=== PATIENT | male | born 1945 | race Caucasian/White ===

== ENCOUNTER → 2016-08-08 | Outpatient (CLI) | payer MEDICARE ==
[~2016-08-08] MED LIST: APIX5TAB PO; ASPI-586 PO; DABI150C5 PO; DABI75CA3 PO; DILT240C90 PO; FLUT9.9S NS; FURO-125 PO; GUAI600T43 PO; METO-333 PO; POTA10TA PO; PSEU30TA18 PO; VIT1CAPS5 PO
--- OUTSIDE RECORDS SUMMARY | 2016-08-08 10:45 | XMS REPORT | Continuity of Care Document ---
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 Medications Current Home Medications Medication Dose Units Route Directions Days/Qty Instructions Start Date Aspirin 81 Mg 81 Mg Oral Daily 05/01/16 Vit A/C/E/Zinc/Co 1 Cap 1 Cap Oral Daily 05/01/16 Social History Social History Problem Response Recorded Date/Time Alcohol Use Rarely Uses 05/01/2016 12:43pm Recreational Drug Use No 05/01/2016 12:43pm Recent Foreign Travel No 05/01/2016 12:43pm Recent Infectious Disease Exposure No 05/01/2016 12:43pm Smoking Status Never a Smoker 05/01/2016 12:43pm Recent Hopitalizations No 05/01/2016 12:43pm Query Response Start Date Stop Date Smoking Status Never a Smoker Hospital Discharge Instructions No hospital discharge instructions. Plan of Care Discharge Date 05/01/16 3:27pm Prescriptions See Medication Section Functional Status No functional status results. Allergies, Adverse Reactions, Alerts No known allergies. Immunizations No immunization records. Vital Signs Acute Vital Signs Vital Response Date/Time Height (Feet) 5 feet 05/01/2016 12:46pm Height (Inches) 11.00 inches 05/01/2016 12:46pm Height (Calculated Centimeters) 180.580692 cm 05/01/2016 12:46pm Weight (Pounds) 280 pounds 05/01/2016 12:46pm Weight (Ounces) 0.0 oz 05/01/2016 12:46pm Weight (Calculated Grams) 711991.87 gm 05/01/2016 12:46pm Weight (Calculated Kilograms) 127.290139 kilograms 05/01/2016 12:46pm Calculated BMI 39.1 05/01/2016 12:46pm Results No known relevant diagnostic tests, laboratory data and/or discharge summary. Procedures No known history of procedures. Encounters Encounter Location Arrival/Admit Date Discharge/Depart Date Attending Provider Departed Clinic [facility] 05/01/16 6:06am 05/01/16 3: 27pm KYLE JOSE MD
== END ==
LOC: CARD 10:41
PROVIDERS: ATTEND Internal Medicine
DX: R00.2 Palpitations (principal); R00.0 Tachycardia, unspecified
CPT/HCPCS: 93005; 93225; 93226

== ENCOUNTER 2016-08-14 14:55 | Day surgery (SDC) | payer MEDICARE ==
[~2016-08-14] VITALS: Ht 180.3 cm; Wt 137.1 kg
[2016-08-14] VITALS (8 sets, daily range): BP systolic 101–155; BP diastolic 68–96
--- OUTSIDE RECORDS SUMMARY | 2016-08-14 14:26 | XMS REPORT | Continuity of Care Document ---
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 Name Role Phone CL SEQUEIRA MD PCP Insurance Providers Payer Name Policy Number Subscriber Name Relationship Wps Medicare [id number] Tahir Berry 16 Self / Same As Patient Blue Cross [facility] Supp [id number] Tahir Berry 16 Self / Same As [...] 11.00 inches 05/01/2016 12:46pm Height (Calculated Centimeters) 180.448500 cm 05/01/2016 12:46pm Weight (Pounds) 280 pounds 05/01/2016 12:46pm Weight (Ounces) 0.0 oz 05/01/2016 12:46pm Weight (Calculated Grams) 419527.87 gm 05/01/2016 12:46pm Weight (Calculated Kilograms) 127.023150 kilograms 05/01/2016 12:46pm Calculated BMI 39.1 05/01/2016 12:46pm Results No known relevant diagnostic tests, laboratory data and/or discharge summary. Procedures No known history of procedures. Encounters Encounter Location Arrival/Admit Date Discharge/Depart Date Attending Provider Departed Clinic [facility] 05/01/16 6:06am 05/01/16 3: 27pm KYLE JOSE MD
[~2016-08-14 14:55] MED LIST changes: -APIX5TAB PO; +ASPIRIN E.C. 325 MG (ECOTRIN) TABLET PO NR; -DABI150C5 PO; -DABI75CA3 PO; -DILT240C90 PO; +DILTIAZEM 25 MG/5 ML INJ (CARDIZEM) VIAL IVP NR; +ENOXAPARIN 100 MG/1 ML (LOVENOX) SYR SC SCH; -FLUT9.9S NS; -FURO-125 PO; -GUAI600T43 PO; -METO-333 PO; -POTA10TA PO; -PSEU30TA18 PO
[2016-08-14] MEDS: DILTIAZEM DRIP 100 MG in SODIUM CHLORIDE (ADD-VANTAGE) 100 ML IV SCH (15:04)
--- NOTE | 2016-08-14 15:18 | Diagnostic Imaging Report ---
PA and lateral views of the chest. COMPARISON: 06/05/2007. INDICATION: Atrial fibrillation. FINDINGS: The heart is moderately enlarged. There is a minimal prominence of the interstitial markings which could relate to mild congestion. No focal infiltrate or edema. No effusion or pneumothorax. The mediastinum and scottie appear unremarkable. IMPRESSION: Cardiomegaly with question of mild pulmonary vascular congestion. Dictated by: Dictated on workstation # [id number]
[2016-08-14 15:24] LABS: MEAN PLATELET VOLUME 9.8 FL (7.4-10.4); RED BLOOD COUNT 4.43 10^6/uL (4.35-5.85); RED CELL DISTRIBUTION WIDTH 13.3 % (10.0-14.5); WHITE BLOOD COUNT 5.1 10^3/uL (4.3-11.0)
[2016-08-14] MEDS ORDERED: DABI150C5 PO (15:28)
[2016-08-14] MEDS ORDERED: FLUT9.9S NS (15:28)
[2016-08-14] MEDS ORDERED: PSEU30TA18 PO (15:28)
[2016-08-14] MEDS ORDERED: GUAI600T43 PO (15:28)
[2016-08-14] MEDS ORDERED: DABI75CA3 PO (15:32)
[2016-08-14 15:41] LABS: INR 1.2 (0.8-1.4); PROTHROMBIN TIME PATIENT 15.1 SEC (12.2-14.7)
[2016-08-14 15:51] LABS: ALANINE AMINOTRANSFERASE 27 U/L (0-55); ALBUMIN 4.1 G/DL (3.2-4.5); ANION GAP 11 MMOL/L (5-14); ASPARTATE AMINO TRANSFERASE 20 U/L (5-34); BILIRUBIN,TOTAL 0.6 MG/DL (0.1-1.0); BLOOD UREA NITROGEN 11 MG/DL (7-18); BUN/CREATININE RATIO 11; CALCIUM 9.4 MG/DL (8.5-10.1); CARBON DIOXIDE 22 MMOL/L (21-32); CHLORIDE 105 MMOL/L (98-107); CREATININE SERUM 0.97 MG/DL (0.60-1.30); GFR ESTIMATED > 60; GLUCOSE 120 MG/DL (70-105); POTASSIUM 4.3 MMOL/L (3.6-5.0); SODIUM 138 MMOL/L (135-145); TOTAL PROTEIN 7.3 G/DL (6.4-8.2)
[2016-08-14 15:57] LABS: TROPONIN I < 0.30 NG/ML (<0.30)
[2016-08-14] MEDS: ENOXAPARIN 300 MG/3 ML (LOVENOX) MULTI-DOSE VIAL SQ SCH (17:53)
[2016-08-14] MEDS: FUROSEMIDE 40 MG/4 ML INJ (LASIX) IVP SCH (17:53)
[2016-08-14] MEDS ORDERED: NON-FORMULARY MEDICATION 1 EA EA (Fluticasone Propionate (Flonase Allergy Relief) 1 SPRAY) NS SCH (21:00)
[2016-08-14] MEDS: FLUTICASONE NASAL SPRAY (FLONASE) 16 GM BTL NS SCH (21:12)
[2016-08-14] MEDS: meTOprolol TARTRATE 25 MG (LOPRESSOR) TABLET PO SCH (21:12)
[2016-08-15] VITALS (16 sets, daily range): BP systolic 85–130; BP diastolic 61–110
[2016-08-15] MEDS: DILTIAZEM DRIP 100 MG in SODIUM CHLORIDE (ADD-VANTAGE) 100 ML IV SCH (01:17)
[2016-08-15] MEDS: ENOXAPARIN 300 MG/3 ML (LOVENOX) MULTI-DOSE VIAL SQ SCH (04:31)
[2016-08-15 04:39] LABS: BASOPHILS % (AUTO) 1 % (0-10); EOSINOPHILS # (AUTO) 0.2 10^3/uL (0.0-0.3); EOSINOPHILS % (AUTO) 4 % (0-10); LYMPHOCYTES # (AUTO) 1.9 X 10^3 (1.0-4.0); LYMPHOCYTES % (AUTO) 36 % (12-44); MEAN CORPUSCULAR HEMOGLOBIN 32 PG (25-34); MEAN CORPUSCULAR HGB CONC 35 G/DL (32-36); MEAN CORPUSCULAR VOLUME 93 FL (80-99); MEAN PLATELET VOLUME 10.2 FL (7.4-10.4); MONOCYTES # (AUTO) 0.6 X 10^3 (0.0-1.0); MONOCYTES % (AUTO) 12 % (0-12); NEUTROPHILS # (AUTO) 2.4 X 10^3 (1.8-7.8); NEUTROPHILS % (AUTO) 47 % (42-75); PLATELET COUNT 189 10^3/uL (130-400); RED BLOOD COUNT 4.39 10^6/uL (4.35-5.85); RED CELL DISTRIBUTION WIDTH 13.6 % (10.0-14.5); WHITE BLOOD COUNT 5.2 10^3/uL (4.3-11.0)
[2016-08-15 05:03] LABS: ALANINE AMINOTRANSFERASE 25 U/L (0-55); ALBUMIN 3.9 G/DL (3.2-4.5); ANION GAP 13 MMOL/L (5-14); ASPARTATE AMINO TRANSFERASE 18 U/L (5-34); BLOOD UREA NITROGEN 13 MG/DL (7-18); BUN/CREATININE RATIO 14; CALCIUM 9.2 MG/DL (8.5-10.1); CARBON DIOXIDE 21 MMOL/L (21-32); CHLORIDE 104 MMOL/L (98-107); CHOLESTEROL 176 MG/DL (< 200); CREATININE SERUM 0.96 MG/DL (0.60-1.30); DIRECT LDL 137 MG/DL (1-129); GFR ESTIMATED > 60; GLUCOSE 124 MG/DL (70-105); PHOSPHORUS 4.1 MG/DL (2.3-4.7); POTASSIUM 3.9 MMOL/L (3.6-5.0); SODIUM 138 MMOL/L (135-145); TOTAL PROTEIN 6.7 G/DL (6.4-8.2); TRIGLYCERIDES 60 MG/DL (<150); VLDL CHOLESTEROL 12 MG/DL (5-40)
[2016-08-15] MEDS ORDERED: MAGNESIUM 1 GM/100 ML IVPB 100 ML IV SCH (06:00)
[2016-08-15] MEDS ORDERED: KCL 20 MEQ TAB (K-DUR) PO SCH (06:00)
[2016-08-15] MEDS ORDERED: POTASSIUM CL 10MEQ/50ML IVPB 50 ML IV SCH (06:00)
[2016-08-15] MEDS: FUROSEMIDE 40 MG/4 ML INJ (LASIX) IVP SCH (06:42)
[2016-08-15] MEDS ORDERED: MIDAZOLAM 5 MG/5 ML (VERSED) VIAL ONE (07:29)
[2016-08-15] MEDS ORDERED: LIDOCAINE 1% INJ 20 ML (XYLOCAINE) VIAL ONE (07:30)
[2016-08-15] MEDS ORDERED: proPOfol 200 MG/20 ML (DIPRIVAN) VIAL IV ONE (07:30)
[2016-08-15] MEDS ORDERED: NS IV 1000 ML 1,000 ML ONE (07:32)
[2016-08-15] MEDS ORDERED: LIDOCAINE 2% VISCOUS 15 ML UDC ONE (07:32)
--- NOTE | 2016-08-15 07:47 | Cardiology History & Physical ---
HPI-Cardiology Cardiology Consultation Date of Consultation 08/15/16 Date of Admission Indication: atrial fibrillation HPI 70-year-old gentleman was seen in my office yesterday for the first time, noted to have atrial fibrillation, reported that he has been asymptomatic, there is questionable sleep apnea. He was tachycardic with a heart rate 160. I decided to admit him to the hospital, echocardiogram showed severe left ventricular systolic dysfunction, probably arrhythmia induced. He denied any chest pain, had minimal pedal edema, overall due to his body habitus his exercise ability is somewhat limited but he did not notice any increasing dyspnea, reporting increasing congestion and orthopnea. PMH-Cardiology Immunizations Up To Date Date of Pneumonia Vaccine: May 01, 2014 Date of Influenza Vaccine: Mar 04, 2016 Seasonal Allergies Seasonal Allergies: Yes Surgeries HX Surgeries: Yes (cyst removed) Respiratory Hx Respiratory Disorders: No Cardiovascular Hx Cardiovascular Disorders: No Cardiac Disorders: Atrial Fibrillation, High Cholesterol Neurological Hx Neurological Disorders: No Genitourinary Hx Genitourinary Disorders: No Gastrointestinal Hx Gastrointestinal Disorders: No Musculoskeletal Hx Musculoskeletal Disorders: No Musculoskeletal Disorders: Arthritis Endocrine Hx Endocrine Disorders: No HEENT HX ENT Disorders: No HEENT Disorders: Macular Degeneration Cancer Hx Cancer: No Psychosocial Hx Psychiatric Problems: No Integumentary HX Skin/Integumentary Disorder: No Blood Transfusions Hx Blood Disorders: No Other PMHx Other PMHx: past medical history as discussed below Social History Patient Social History Marrital Status: Employed/Student: employed, retired Alcohol Use: Denies Use Recreational Drug Use: No Smoking: Never smoker Recent Foreign Travel: No Contact w/other who traveled: No Recent Infectious Disease Expo: No Family Hx Other noncontributory to his current condition Family History: FH: stomach cancer 17 FATHER ROS-Cardiology Review of Systems General: No Chills, No Night Sweats, No Fatigue, MalaiseNo Appetite HEENT: No Head Aches, No Visual Changes, No Eye Pain, No Ear Pain, No Dysphasia , No Sinus Congestion, No Post Nasal Drip, No Sore Throat Pulmonary: DyspneaNo Cough, No Pleuritic Chest Pain Cardiovascular: : EdemaNo: Chest Pain, Lt Headedness, Orthopnea, Palpitations, Paroxysmal Noc. Dyspnea Gastrointestinal: No: Abdominal Pain, Constipation, Diarrhea, Hematochezia, Melena, Nausea, Vomiting Genitourinary: No Dysuria, No Frequency, No Incontinence, No Hematuria, No Retention Musculoskeletal: No: arm pain, back pain, foot pain, hand pain, leg pain, neck pain, shoulder pain Neurological: No: Change in speech, Confusion, Incoordination, Numbness, Seizures, Weakness Home Medications & Allergies Allergies: Coded Allergies: No Known Drug Allergies (Unverified , 05/01/16) Home Medication List Reviewed: Yes Exam-Cardiology Vital Signs Vital Signs Date Time Temp Pulse Resp B/P Pulse Ox O2 Delivery O2 Flow Rate FiO2 08/15/16 12:37 98.7 08/15/16 12:20 97 08/15/16 11:00 73 26 95/64 Room Air Exam General Appearance: Alert, Oriented X3, Cooperative, No Acute Distress HEENT: Atraumatic, PERRLA Respiratory: Clear to Auscultation, Normal Air Movement Cardiovascular: Normal S1, Normal S2, No Murmurs, Other (atrial fibrillation with ventricular response, trace edema) Abdominal: Normal Bowel Sounds, Soft, No Tenderness, No Hepatosplenomegaly, No Masses Extremities: No Clubbing, No Cyanosis, Normal Pulses, No Tenderness/Swelling Skin: No Rashes, No Breakdown, No Significant Lesion Neuro: Normal Gait, Normal Speech, Strength at 5/5 X4 Ext, Normal Tone, Sensation Intact Psych/Mental Status: Mental Status NL, Mood NL Results Labs Labs Laboratory Tests 08/14/16 15:15: Activated Partial Thromboplast Time 39H, Alanine Aminotransferase (ALT/SGPT) 27 , Albumin 4.1, Alkaline Phosphatase 64, Anion Gap 11, Aspartate Amino Transf ( AST/SGOT) 20, B-Type Natriuretic Peptide 180.5H, BUN/Creatinine Ratio 11, Blood Urea Nitrogen 11, Calcium Level 9.4, Carbon Dioxide Level 22, Chloride Level 105 , Creatinine 0.97, Estimat Glomerular Filtration Rate > 60, Glucose Level 120H, Hematocrit 41, Hemoglobin 14.3, INR Comment 1.2, Magnesium Level 2.0, Mean Corpuscular Hemoglobin 32, Mean Corpuscular Hemoglobin Concent 35, Mean Corpuscular Volume 93, Mean Platelet Volume 9.8, Platelet Count 189, Potassium Level 4.3, Prothrombin Time 15.1H, Red Blood Count 4.43, Red Cell Distribution Width 13.3, Sodium Level 138, Total Bilirubin 0.6, Total Protein 7.3, Troponin I < 0.30, White Blood Count 5.1 08/15/16 04:10: Alanine Aminotransferase (ALT/SGPT) 25, Albumin 3.9, Alkaline Phosphatase 66, Anion Gap 13, Aspartate Amino Transf (AST/SGOT) 18, BUN/Creatinine Ratio 14, Blood Urea Nitrogen 13, Calcium Level 9.2, Carbon Dioxide Level 21, Chloride Level 104, Creatinine 0.96, Estimat Glomerular Filtration Rate > 60, Glucose Level 124H, Hematocrit 41, Hemoglobin 14.1, Magnesium Level 2.0, Mean Corpuscular Hemoglobin 32, Mean Corpuscular Hemoglobin Concent 35, Mean Corpuscular Volume 93, Mean Platelet Volume 10.2, Platelet Count 189, Potassium Level 3.9, Red Blood Count 4.39, Red Cell Distribution Width 13.6, Sodium Level 138, Total Bilirubin 1.0, Total Protein 6.7, White Blood Count 5.2, Basophils # (Auto) 0.0, Basophils (%) (Auto) 1, Cholesterol Level 176, Eosinophils # (Auto) 0.2, Eosinophils (%) (Auto) 4, HDL Cholesterol 38L, LDL Cholesterol Direct 137H , Lymphocytes # (Auto) 1.9, Lymphocytes (%) (Auto) 36, Monocytes # (Auto) 0.6, Monocytes (%) (Auto) 12, Neutrophils # (Auto) 2.4, Neutrophils (%) (Auto) 47, Phosphorus Level 4.1, Triglycerides Level 60, VLDL Cholesterol 12 A/P-Cardiology Admission Diagnosis Atrial fibrillation Tachycardia Congestive heart failure acute left ventricular systolic dysfunction, nonischemic cardiomyopathy, ejection fraction 30 percent Shortness of breath on exertion Assessment/Plan Atrial fibrillation with rapid ventricular response, started on Cardizem drip, rate is better controlled, planning for DOMINICK and cardioversion today. I'll continue monitoring. Congestive heart failure, ejection fraction 30 percent, acute left ventricular systolic dysfunction, probably secondary to tachycardia. Underlying coronary artery disease cannot be entirely ruled out. Patient will be scheduled for stress test as an outpatient. shortness of breath on exertion, orthopnea, mildly elevated BNP, given Lasix, some improvement today. Tachycardia, better on Cardizem drip, planning for DOMINICK and electrical cardioversion Moderate aortic valve stenosis, mild to moderate aortic regurgitation. Questionable sleep apnea, patient will need sleep study done. Addendum Patient underwent DOMINICK, questionable thrombus in the left atrial appendage, I was unable to do cardioversion. I switched him to oral Cardizem, continue on metoprolol, he will be unable to tolerate OTTO inhibitor and/or ARB due to hypotension. Patient will be discharged home, I'll scheduled for sleep study Clinical Quality Measures DVT/VTE Risk/Contraindication: Risk Factor Score Per Nursin RFS Level Per Nursing on Admit: 3=High ABRAHAN POOL MD Aug 15, 2016 07:47
--- NOTE | 2016-08-15 07:47 | Cardiac Procedure Note-CS/ASA ---
Pre-Procedure Note Pre-Op Procedure Note H&P Reviewed The H&P was reviewed, patient examined and no changes noted. Date H&P Reviewed: Aug 15, 2016 Time H&P Reviewed: 07:47 Conscious Sedation Pre-Proced Time Reviewed: 07:47 ASA Class: 3 Airway Mallampati Classification: (point hope ira appropriate class) I. II. III, IV Lungs Heart ASA score ASA 1: a normal healthy patient ASA 2: a patient with a mild systemic disease (mid diabetes, controlled hypertension, obesity x ASA 3: a patient with a severe systemic disease that limits activity (angina , COPD, prior Myocardial infarction) ASA 4: a patient with an incapacitating disease that is a constant threat to life (CHF, renal failure) ASA 5: a moribund patient not expected to survive 24 hrs. (ruptured aneurysm) ASA 6: a declared brain patient whose organs are being harvested. For emergent operations, add the letter E after the classification Grade 3 Sedation Plan: Analgesia, Amnesia, Plan communicated to team members, Discussed options with patient/fam, Discussed risks with patient/fam Note The patient is an appropriate candidate to undergo the planned procedure, sedation, and anesthesia. The patient immediately re-assessed prior to indication. ABRAHAN POOL MD Aug 15, 2016 07:47
--- NOTE | 2016-08-15 07:56 | Diagnostic Imaging Report ---
INDICATION: Dyspnea. 0508 hrs. Comparison is made study of one day earlier. FINDINGS: There is mild cardiomegaly with pulmonary vascularity at the upper limits of normal. No overt edema is identified. There is no evidence of pneumothorax. There is no focal consolidation. IMPRESSION: Cardiomegaly with pulmonary vascularity at the upper limits of normal. No overt edema or other acute abnormality is identified. Dictated by: Dictated on workstation # [id number]
[2016-08-15] MEDS ORDERED: ASPIRIN E.C. 81 MG (ECOTRIN) TAB PO SCH (09:00)
[2016-08-15] MEDS ORDERED: DILTIAZEM 240 MG (CARDIZEM CD) CAP PO SCH (09:00)
[2016-08-15] MEDS ORDERED: APIXABAN 5 MG (ELIQUIS) TABLET PO SCH (09:00)
--- NOTE | 2016-08-15 09:28 | ECHOCARDIOGRAPHY REPORT ---
PROCEDURE PHYSICIAN: ABRAHAN POOL DATE OF PROCEDURE: 08/14/2016 TWO DIMENSIONAL ECHOCARDIOGRAM REPORT PRIMARY PHYSICIAN: OTHER PHYSICIAN: REFERRING PHYSICIAN: Dr. Welsh ORDERING PHYSICIAN: INDICATION FOR THE PROCEDURE: 1. Shortness of breath. 2. Atrial fibrillation. MEASUREMENTS DERIVED VALUES LV DIAMETER (LAX) NORMALS NORMALS Diastolic 5.6 (3.6-5.2) Eject. Fract. 30% (60%+/-6%) Systolic (2.3-3.9) Diastolic Vol. % Shortening (0.22-0.42) Systolic Vol. Aortic Root IVS THICKNESS Diastolic 1.3 (0.6-1.1) LVPW THICKNESS Diastolic 1.4 (0.6-1.1) LA DIAMETER Systolic 4.1 (2.1-3.7) FINDINGS: 1. Technically difficult study. 2. The left ventricle is normal in size, endocardium was not well visualized in all segments. Moderate left ventricular hypertrophy with diffuse left ventricular hypokinesia. Estimated ejection fraction 30%. 3. The left atrium is dilated. No clot or thrombus were seen within the left atrium. 4. The right atrium is dilated. Right ventricle is prominent. No clot or thrombus were seen within the right side. 5. Mitral valve is heavily calcified with mild mitral regurgitation noted by color Doppler flow. No mitral valve prolapse. 6. Aortic valve is heavily calcified, leaflets were not well visualized. Doppler across the aortic valve estimated the peak gradient of 33 mmHg, mean gradient of 18 mmHg, calculated valve area of 1.8 sq cm which is mild to moderate aortic valve stenosis. I believe it is an over estimation of the valve area due to the low cardiac output. There is mild to moderate aortic regurgitation noted by color Doppler flow. 7. Tricuspid valve is normal in morphology with moderate tricuspid regurgitation noted by color Doppler flow. Doppler across tricuspid valve estimated pulmonary artery pressure of 25+ right atrial pressure. 8. Pulmonic valve is functioning normally. 9. No pericardial effusion. IN CONCLUSION: 1. Moderate left ventricular hypertrophy with diffuse left ventricular hypokinesia. Estimated ejection fraction 30%. 2. Moderate aortic valve stenosis. Mild to moderate aortic regurgitation. 3. Dilated left atrium with prominent right heart chambers. 4. Mild to moderate mitral regurgitation, mild to moderate tricuspid regurgitation. 5. Estimated pulmonary artery pressure of 35 mmHg. Job ID: [id number] Dictated Date: 08/14/2016 16:39:41 Audio Visual Director Date: 08/15/2016 09:23:46 / tbk
[2016-08-15] MEDS: meTOprolol TARTRATE 25 MG (LOPRESSOR) TABLET PO SCH (09:29)
[2016-08-15] MEDS: FLUTICASONE NASAL SPRAY (FLONASE) 16 GM BTL NS SCH (09:29)
--- NOTE | 2016-08-15 11:22 | TEE REPORT ---
DATE OF PROCEDURE: 08/15/2016 BRIEF HISTORY: Mr. Berry is a 70-year-old gentleman who was admitted for atrial fibrillation with rapid ventricular response and congestive heart failure. I decided to proceed with DOMINICK possible electrical cardioversion. PROCEDURE NOTE: After explaining the procedure to the patient, all pros and cons were explained. All questions were answered. The patient signed a consent, then he was placed in the left lateral decubitus position. Oropharynx was anesthetized using Cetacaine spray. Omniplane probe was introduced through the mouth to the esophagus and then to the stomach. The patient was sedated with assist of anesthesia. Multiple views were obtained. At the end of the procedure Omniplane probe was removed. No complication noted. FINDINGS: 1. The left ventricle is normal in size. Systolic function appeared to be better than the transthoracic echo. Estimated ejection fraction 40%. 2. The left atrium left atrial appendage are dilated. Smoke was noted in the left atrial appendage questionable thrombus in the left atrial appendage. Low velocity by Doppler. 3. Right atrium is dilated. Right ventricle is normal in size. 4. Intra-atrial septum evaluation showed no shunt by color Doppler flow or agitated saline as a contrast media. 5. Mitral valve is calcified with moderate mitral regurgitation. No mitral valve prolapse. 6. Aortic valve is heavily calcified, valve area was calculated to be 2 sq cm which is mild aortic valve stenosis, there is mild aortic regurgitation. 7. Tricuspid valve and pulmonic valve were normal. 8. No dissection or aneurysm was seen. CONCLUSION: 1. Echogenic density was noted in the left atrial appendage suggestive of a thrombus. Enlarged left atrium and left atrial appendage with low velocity and smoke in the left atrium. 2. Left ventricular systolic function appears to be slightly better than the transthoracic echo, probably because the heart rate is better controlled. Ejection fraction 40%. 3. Dilated right atrium. 4. Moderate mitral regurgitation. Mild aortic regurgitation. 5. Mild aortic valve stenosis. Job ID: [id number] Dictated Date: 08/15/2016 08:28:43 Cryptological Technician Date: 08/15/2016 11:17:21/penelope
[2016-08-15] MEDS ORDERED: CATHETER FLUSH 10 ML SYR IV PRN (11:30)
[2016-08-15] MEDS ORDERED: CATHETER FLUSH 10 ML SYR IV SCH (14:00)
[2016-08-15] MEDS ORDERED: APIX5TAB PO (14:58)
[2016-08-15] MEDS ORDERED: POTA10TA PO (14:58)
[2016-08-15] MEDS ORDERED: DILT240C90 PO (14:58)
[2016-08-15] MEDS ORDERED: FURO-125 PO (14:58)
[2016-08-15] MEDS ORDERED: METO-333 PO (14:58)
--- NOTE | 2016-08-15 15:01 | Clinic Account Progress/Dx ---
Clinic Account Progress/Dx DIAGNOSIS: Diagnosis Paroxysmal atrial fibrillation Congestive heart failure, acute left ventricular systolic dysfunction, nonischemic cardiomyopathy, ejection fraction 40 percent Shortness of breath Fatigue ABRAHAN POOL MD Aug 15, 2016 15:01
--- OUTSIDE RECORDS SUMMARY | 2016-08-16 15:53 | XMS REPORT | Continuity of Care Document ---
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 Name Role Phone CL SEQUEIRA MD PCP Insurance Providers Payer Name Policy Number Subscriber Name Relationship Wps Medicare [id number] Tahir Berry 18 Self / Same As Patient Blue Cross [facility] Supp [id number] Tahir Berry 16 Self / Same As [...] 11.00 inches 05/01/2016 12:46pm Height (Calculated Centimeters) 180.435591 cm 05/01/2016 12:46pm Weight (Pounds) 280 pounds 05/01/2016 12:46pm Weight (Ounces) 0.0 oz 05/01/2016 12:46pm Weight (Calculated Grams) 343675.87 gm 05/01/2016 12:46pm Weight (Calculated Kilograms) 127.393072 kilograms 05/01/2016 12:46pm Calculated BMI 39.1 05/01/2016 12:46pm Results No known relevant diagnostic tests, laboratory data and/or discharge summary. Procedures No known history of procedures. Encounters Encounter Location Arrival/Admit Date Discharge/Depart Date Attending Provider Departed Clinic [facility] 05/01/16 6:06am 05/01/16 3: 27pm KYLE JOSE MD
--- OUTSIDE RECORDS SUMMARY | 2016-08-16 15:53 | XMS REPORT | Continuity of Care Document ---
Author Author [facility] Organization [facility] Address Unknown Phone Unavailable Care Team Providers Care Pet Caretaker Name Role Phone CL SEQUEIRA MD PCP Insurance Providers Payer Name Policy Number Subscriber Name Relationship Wps Medicare [id number] Tahir Berry 16 Self / Same As Patient Blue Cross [facility] Supp [id number] Tahir Berry 16 Self / Same As [...] 11.00 inches 05/01/2016 12:46pm Height (Calculated Centimeters) 180.373335 cm 05/01/2016 12:46pm Weight (Pounds) 280 pounds 05/01/2016 12:46pm Weight (Ounces) 0.0 oz 05/01/2016 12:46pm Weight (Calculated Grams) 494688.87 gm 05/01/2016 12:46pm Weight (Calculated Kilograms) 127.567151 kilograms 05/01/2016 12:46pm Calculated BMI 39.1 05/01/2016 12:46pm Results No known relevant diagnostic tests, laboratory data and/or discharge summary. Procedures No known history of procedures. Encounters Encounter Location Arrival/Admit Date Discharge/Depart Date Attending Provider Departed Clinic [facility] 05/01/16 6:06am 05/01/16 3: 27pm KYLE JOSE MD
--- NOTE | 2016-08-21 14:59 | Progress Note-Standard ---
Standard Progress Note Progress Notes/Assess & Plan Progress/Assessment & Plan post date note for 08/15/16 [id number]: Called to ICU for sedation for DOMINICK/ Cardioversion. Patient's history obtained and consent signed via RN. GUPTA. Total of 5 versed IV and 100 mg Propofol given for the entire procedure. ETCO2 monitoring throughout the entire procedure and spontaneous respirations remained. Reported off to RN. DONNA Martinez SHANNA R CRNA Aug 21, 2016 14:59
== END 2016-08-15 16:43 | disposition home or self-care (01) ==
LOC: ICU 14:55 → CATH 14:55 → UNDODISIN 08-15 16:43 → EDSTATUS 08-16 15:48
PROVIDERS: ATTEND Internal Medicine Cardiovascular Disease
DX: I48.91 Unspecified atrial fibrillation (principal); I08.0 Rheumatic disorders of both mitral and aortic valves; R94.39 Abnormal result of other cardiovascular function study; E66.01 Morbid (severe) obesity due to excess calories; E78.5 Hyperlipidemia, unspecified; I50.9 Heart failure, unspecified; I10 Essential (primary) hypertension; Z79.01 Long term (current) use of anticoagulants; Z79.899 Other long term (current) drug therapy; Z68.41 Body mass index [BMI] 40.0-44.9, adult
CPT/HCPCS: 36415; 71010; 71020; 80053; 80061; 83735; 83880; 84100; 84484; 85025; 85027; 85610; 85730; 87081; 93005; 93306; 93312; 99211; G0378

== ENCOUNTER 2016-09-30 21:00 | Outpatient (CLI) | payer MEDICARE ==
[~2016-09-30 21:00] MED LIST changes: +APIX5TAB PO; -ASPIRIN E.C. 325 MG (ECOTRIN) TABLET PO NR; +DABI150C5 PO; +DABI75CA3 PO; +DILT240C90 PO; -DILTIAZEM 25 MG/5 ML INJ (CARDIZEM) VIAL IVP NR; -ENOXAPARIN 100 MG/1 ML (LOVENOX) SYR SC SCH; +FLUT9.9S NS; +FURO-125 PO; +GUAI600T43 PO; +METO-333 PO; +POTA10TA PO; +PSEU30TA18 PO
== END 2016-10-01 06:47 | disposition home or self-care (01) ==
LOC: SLEEP 21:00
PROVIDERS: ATTEND Internal Medicine Cardiovascular Disease
DX: G47.33 Obstructive sleep apnea (adult) (pediatric) (principal); I48.91 Unspecified atrial fibrillation
CPT/HCPCS: 95810

== ENCOUNTER → 2016-10-16 | Outpatient (CLI) | payer MEDICARE ==
[~2016-10-16] VITALS: Ht 177.8 cm; Wt 135.2 kg
[~2016-10-16] MED LIST changes: +AMIO200T2 PO; +CATHETER FLUSH 10 ML SYR IV PRN; +DILT240C87 PO; +ENAL2.5T PO; +MUCINEX SINUS NSEACH; +REGADENOSON 0.4 MG/5 ML SYR (LEXISCAN) IV ONE
[2016-10-16 09:05] VITALS: BP 134/99
[2016-10-16 09:13] VITALS: BP 130/94
[2016-10-16 09:16] VITALS: BP 128/95
--- NOTE | 2016-10-17 06:34 | STRESS TEST ---
DATE OF SERVICE: 10/16/2016 PROCEDURE: LEXISCAN MYOVIEW STRESS TEST SUMMARY: Baseline heart rate is 76. Baseline blood pressure 134/99. Baseline EKG is atrial fibrillation with controlled rate. The patient was injected with 10.25 mCi of technetium-99 Myoview and the resting images were obtained. Then, the patient received 0.4 mg of Lexiscan followed by 29.2 mCi of technetium-99 Myoview. Throughout the test, there were no EKG changes. The resting and stress images were reviewed and compared in the short axis, horizontal long axis and vertical long axis views. Review of the images showed good radiotracer uptake with diaphragmatic attenuation affecting the quality of the images. No significant ischemia or infarction was seen. SSS is 2. SDS is 2. TID value 1.04. On the gated images, the left ventricle appeared to be dilated with end diastolic volume 132 mL and systolic volume 88 mL. Diffuse left ventricular hypokinesia and calculated ejection fraction 33%. CONCLUSION: 1. The patient tolerated Lexiscan well. 2. Baseline atrial fibrillation persisted throughout the test. 3. Typical male pattern with no significant ischemia or infarction on SPECT images. 4. Dilated left ventricle with calculated ejection fraction 33%, Gated images are unreliable due to underlying atrial fibrillation. Job ID: [id number] DocumentID: [id number] Dictated Date: 10/16/2016 11:42:35 Pearl Fisherman Date: 10/16/2016 13:56:34 Dictated By: ABRAHAN POOL MD
== END ==
LOC: CARD 07:12
PROVIDERS: ATTEND Internal Medicine Cardiovascular Disease
DX: I48.0 Paroxysmal atrial fibrillation (principal); I35.0 Nonrheumatic aortic (valve) stenosis; I10 Essential (primary) hypertension; I34.0 Nonrheumatic mitral (valve) insufficiency; E78.2 Mixed hyperlipidemia; R00.2 Palpitations
CPT/HCPCS: 78452; 93017

== ENCOUNTER 2016-10-18 07:51 | Day surgery (SDC) | payer MEDICARE ==
[~2016-10-18] VITALS: Ht 177.8 cm; Wt 133.8 kg
[2016-10-18] VITALS (16 sets, daily range): BP systolic 103–148; BP diastolic 70–99
[~2016-10-18 07:51] MED LIST changes: -AMIO200T2 PO; -CATHETER FLUSH 10 ML SYR IV PRN; -DILT240C87 PO; -ENAL2.5T PO; -MUCINEX SINUS NSEACH; -REGADENOSON 0.4 MG/5 ML SYR (LEXISCAN) IV ONE
[2016-10-18] MEDS ORDERED: LIDOCAINE 2% VISCOUS 15 ML UDC ONE (07:58)
[2016-10-18] MEDS ORDERED: NS IV 1000 ML 1,000 ML ONE (07:58)
[2016-10-18] MEDS ORDERED: NS IV 1000 ML 1,000 ML IV SCH ×2 (08:06→08:15)
[2016-10-18 08:32] LABS: BILIRUBIN,URINE NEGATIVE (NEGATIVE); KETONES,URINE NEGATIVE (NEGATIVE); LEUKOCYTE ESTERASE ,URINE 1+ (NEGATIVE); NITRITE,URINE NEGATIVE (NEGATIVE); PH,URINE 7 (5-9); PROTEIN,URINE NEGATIVE (NEGATIVE); UROBILINOGEN,URINE NORMAL (NORMAL)
[2016-10-18 08:44] LABS: WBC,URINE RARE /HPF
--- NOTE | 2016-10-18 08:44 | Diagnostic Imaging Report ---
INDICATION: Hypertension and atrial fibrillation PA chest obtained at 8:29 a.m. and compared with 08/15/16. There is prominent cardiomegaly. Mediastinal silhouette is unremarkable. There is no acute infiltrate or pneumothorax or pleural fluid. IMPRESSION: Prominent cardiomegaly. No acute infiltrate or pneumothorax or pleural fluid. Dictated by: Dictated on workstation # [id number]
[2016-10-18 08:47] LABS: INR 1.1 (0.8-1.4); PROTHROMBIN TIME PATIENT 13.5 SEC (12.2-14.7)
[2016-10-18 08:55] LABS: ALANINE AMINOTRANSFERASE 21 U/L (0-55); ALBUMIN 4.2 G/DL (3.2-4.5); ANION GAP 8 MMOL/L (5-14); ASPARTATE AMINO TRANSFERASE 18 U/L (5-34); BILIRUBIN,TOTAL 0.8 MG/DL (0.1-1.0); BLOOD UREA NITROGEN 12 MG/DL (7-18); BUN/CREATININE RATIO 13; CALCIUM 9.5 MG/DL (8.5-10.1); CARBON DIOXIDE 25 MMOL/L (21-32); CHLORIDE 105 MMOL/L (98-107); CHOLESTEROL 217 MG/DL (< 200); CREATININE SERUM 0.95 MG/DL (0.60-1.30); DIRECT LDL 175 MG/DL (1-129); GFR ESTIMATED > 60; GLUCOSE 123 MG/DL (70-105); POTASSIUM 4.1 MMOL/L (3.6-5.0); SODIUM 138 MMOL/L (135-145); TOTAL PROTEIN 7.2 G/DL (6.4-8.2); TRIGLYCERIDES 102 MG/DL (<150); VLDL CHOLESTEROL 20 MG/DL (5-40)
[2016-10-18] MEDS ORDERED: MUCINEX SINUS NSEACH (09:01)
[2016-10-18] MEDS ORDERED: ENAL2.5T PO (09:01)
[2016-10-18] MEDS ORDERED: DILT240C87 PO (09:01)
[2016-10-18] MEDS ORDERED: METO-333 PO (09:01)
[2016-10-18] MEDS ORDERED: APIX5TAB PO (09:01)
[2016-10-18] MEDS ORDERED: proPOfol 200 MG/20 ML (DIPRIVAN) VIAL IV ONE (09:05)
[2016-10-18] MEDS ORDERED: FLUMAZENIL (ROMAZICON) 0.1 MG/ML 5 ML VIAL ONE (09:05)
[2016-10-18] MEDS ORDERED: MIDAZOLAM 5 MG/5 ML (VERSED) VIAL ONE (09:05)
[2016-10-18 09:16] LABS: MEAN PLATELET VOLUME 10.5 FL (7.4-10.4); RED BLOOD COUNT 4.82 10^6/uL (4.35-5.85); RED CELL DISTRIBUTION WIDTH 13.7 % (10.0-14.5); WHITE BLOOD COUNT 5.3 10^3/uL (4.3-11.0)
--- NOTE | 2016-10-18 09:30 | Cardiac Procedure Note-CS/ASA ---
Pre-Procedure Note Pre-Op Procedure Note H&P Reviewed The H&P was reviewed, patient examined and no changes noted. Date H&P Reviewed: October 18, 2016 Time H&P Reviewed: 09:30 Conscious Sedation Pre-Proced Time Reviewed: 09:30 ASA Class: 3 Airway Mallampati Classification: ([place] ira appropriate class) I. II. III, IV Lungs Heart ASA score ASA 1: a normal healthy patient ASA 2: a patient with a mild systemic disease (mid diabetes, controlled hypertension, obesity x ASA 3: a patient with a severe systemic disease that limits activity (angina , COPD, prior Myocardial infarction) ASA 4: a patient with an incapacitating disease that is a constant threat to life (CHF, renal failure) ASA 5: a moribund patient not expected to survive 24 hrs. (ruptured aneurysm) ASA 6: a declared brain patient whose organs are being harvested. For emergent operations, add the letter E after the classification Grade 3 Sedation Plan: Analgesia, Amnesia, Plan communicated to team members, Discussed options with patient/fam, Discussed risks with patient/fam Note The patient is an appropriate candidate to undergo the planned procedure, sedation, and anesthesia. The patient immediately re-assessed prior to indication. ABRAHAN POOL MD October 18, 2016 09:30
[2016-10-18] MEDS ORDERED: AMIODARONE 150 MG/3 ML (CORDARONE) AMP IV ONE (09:40)
--- NOTE | 2016-10-18 09:41 | Progress Note-Standard ---
Standard Progress Note Progress Notes/Assess & Plan Progress/Assessment & Plan Called to [facility] for DOMINICK/Cardioversion. Brief history obtained from patient. Chart reviewed. Consent signed. Sedation of versed 1 mg and propofol 100mg given for procedure. Tolerated well. Care to [facility] RN. RADHA ZAMBRANO CRNA October 18, 2016 09:41
[2016-10-18] MEDS ORDERED: AMIO200T2 PO (09:44)
[2016-10-18] MEDS ORDERED: AMIODARONE FOR BOLUS 150 MG in D5W 100 ML IVPB 100 ML IV ONE (09:45)
[2016-10-18] MEDS ORDERED: AMIODARONE 200 MG (CORDARONE) TAB PO SCH (09:45)
--- NOTE | 2016-10-23 12:41 | TEE REPORT ---
DATE OF SERVICE: 10/18/2016 TRANSESOPHAGEAL ECHOCARDIOGRAM WITH ELECTRICAL CARDIOVERSION REFERRING PHYSICIAN: Dr. Welsh. BRIEF HISTORY: The patient is a 70-year-old gentleman who was diagnosed with atrial fibrillation and congestive heart failure. He had a DOMINICK which showed questionable left atrial thrombus, underwent aggressive oral anticoagulation with Eliquis, then returned for reevaluation. PROCEDURE NOTE: After explaining the procedure to the patient, all pros and cons were explained. All questions were answered. The patient signed the consent, then he was placed on the left lateral decubitus position. Oropharynx was anesthetized with lidocaine. Conscious sedation was achieved with the assistance of anesthesia. Omniplane probe was introduced through the mouth to the esophagus, then to the stomach. Multiple views were obtained. Omniplane probe was removed at the end of the procedure, no complication noted. FINDINGS: 1. The left ventricle is normal in size, systolic function is reduced, estimated ejection fraction 40%. 2. The left atrium is dilated with smoke in the left atrium. Left atrial appendage is prominent. There is prominent trabeculation in the left atrial appendage doubt that it is thrombus. Doppler across the left atrial appendage showed good velocity. 3. The right atrium and right ventricle are normal in size. 4. Interatrial septum was normal. No shunt was noted. 5. Mitral valve is calcified with mild mitral regurgitation. No mitral valve prolapse. No mitral valve stenosis. 6. Aortic valve is trileaflet, calcified with mild aortic regurgitation. There is [id number]-[id number] aortic stenosis known from before the valve area was not measured on this study. 7. Tricuspid valve and pulmonic valve were normal. 8. Portions of the aortic arch, descending aorta and aortic root were evaluated and they were normal. IN CONCLUSION: 1. Dilated left atrium with left atrial appendage with smoke in the left atrium. No clot or thrombus were seen. 2. Normal left ventricle with diffuse left ventricular hypokinesia, estimated ejection fraction 40%. 3. Mild mitral regurgitation, mild aortic regurgitation, [id number] aortic stenosis. ELECTRICAL CARDIOVERSION: The patient was sedated again with the assistance of anesthesia. DC cardioversion was delivered with 200 joules and it was successful in terminating atrial fibrillation. The patient maintained sinus rhythm. IN CONCLUSION: Successful electrical cardioversion. The patient maintained in sinus rhythm. FINAL DIAGNOSES: 1. Paroxysmal atrial fibrillation. 2. Aortic valve stenosis. 3. Mitral regurgitation. 4. Congestive heart failure, chronic, compensated left ventricular systolic dysfunction, nonischemic cardiomyopathy. Job ID: [id number] DocumentID: [id number] Dictated Date: 10/18/2016 09:38:29 Layout Technician Date: 10/18/2016 12:32:00 Dictated By: ABRAHAN POOL MD
== END 2016-10-18 14:10 | disposition home or self-care (01) ==
LOC: CATH 07:51 → SURG 10:16 → CATH 14:10
PROVIDERS: ATTEND Internal Medicine Cardiovascular Disease
DX: I48.0 Paroxysmal atrial fibrillation (principal); I10 Essential (primary) hypertension; E66.01 Morbid (severe) obesity due to excess calories; Z68.41 Body mass index [BMI] 40.0-44.9, adult; I50.9 Heart failure, unspecified; G47.33 Obstructive sleep apnea (adult) (pediatric); I35.0 Nonrheumatic aortic (valve) stenosis; I34.0 Nonrheumatic mitral (valve) insufficiency; R00.2 Palpitations; E78.2 Mixed hyperlipidemia; Z79.01 Long term (current) use of anticoagulants; Z79.899 Other long term (current) drug therapy
CPT/HCPCS: 36415; 71010; 80053; 80061; 81000; 85027; 85610; 85730; 87081; 92960; 93005; 93312; 93320; 93325

== ENCOUNTER → 2016-11-22 | Outpatient (CLI) | payer MEDICARE ==
[~2016-11-22] MED LIST changes: +AMIO200T2 PO; +DILT240C87 PO; +ENAL2.5T PO; +MUCINEX SINUS NSEACH
== END ==
LOC: CARD 13:37
PROVIDERS: ATTEND Physician Assistant
DX: I35.1 Nonrheumatic aortic (valve) insufficiency (principal); I10 Essential (primary) hypertension; E78.2 Mixed hyperlipidemia; R00.2 Palpitations; I48.0 Paroxysmal atrial fibrillation
CPT/HCPCS: 93306

== ENCOUNTER → 2017-02-08 | Outpatient (CLI) | payer MEDICARE ==
[~2017-02-08] MED LIST changes: +CATHETER FLUSH 10 ML SYR IV PRN; +IOHEXOL 350 MG/ML 100 ML (OMNIPAQUE 350) VIAL IV ONE; +NS 100 ML (IVPB) BAG IV ONE
[2017-02-08 11:45] LABS: BLOOD UREA NITROGEN 12 MG/DL (7-18); BUN/CREATININE RATIO 14; CREATININE SERUM 0.88 MG/DL (0.60-1.30); GFR ESTIMATED > 60
--- NOTE | 2017-02-08 13:53 | Diagnostic Imaging Report ---
CTA of the neck with contrast. INDICATION: Carotid stenosis. Contiguous axial sections were taken from the midportion of the skull to the lung apices following administration of intravenous contrast. Sagittal and coronal reconstructed images were also performed. There are no prior studies available for comparison. FINDINGS: There is heavy hard and soft plaque formation involving both carotid bifurcations. On the left, there does appear to be a high-grade (80-90%) stenosis of the internal carotid artery just distal to the calcified plaque formation. The stenosis is best visualized on the sagittal series (image 104 of 258). There is also band-like narrowing of the origin of the internal carotid artery on the right and this does result in 60-70% stenosis of this vessel in this region (coronal image 170 of 410). There is no evidence for a hemodynamically significant stenosis of either carotid system otherwise. Both vertebral arteries were opacified. The vertebral arteries are codominant. The intracranial arterial vasculature, where visualized, shows no evidence for an aneurysm of the [place] or for a hemodynamically significant stenosis. The intracranial contents, where visualized, are unremarkable for an acute abnormality. The sinuses are generally clear. There is no mass or adenopathy involving the neck. The parotid and submandibular glands are unremarkable. The thyroid gland is obscured by streak artifact. The lung apices are clear. The bone windows show degenerative disc and bony disease at C6-C7. There is no acute bony abnormality noted. IMPRESSION: 1. There is heavy hard and soft atherosclerotic plaque involving both carotid bifurcations. There is an 80-90% stenosis of the origin of the internal carotid artery on the left and 60-70% stenosis of the origin of the internal carotid artery on the right. 2. Both vertebral arteries were identified. The vertebral arteries are opacified and appear codominant. 3. The intracranial arterial vasculature, where visualized, is unremarkable. 4. There is no acute abnormality identified. Dictated by: Dictated on workstation # [id number]
== END ==
LOC: RAD 09:58
PROVIDERS: ATTEND Internal Medicine Cardiovascular Disease
DX: I65.23 Occlusion and stenosis of bilateral carotid arteries (principal)
CPT/HCPCS: 36415; 70498; 82565; 84520

== ENCOUNTER 2017-02-20 14:10 | Outpatient (CLI) | payer MEDICARE ==
[~2017-02-20 14:10] MED LIST changes: -CATHETER FLUSH 10 ML SYR IV PRN; -IOHEXOL 350 MG/ML 100 ML (OMNIPAQUE 350) VIAL IV ONE; -NS 100 ML (IVPB) BAG IV ONE
== END 2017-02-20 14:29 | disposition home or self-care (01) ==
LOC: SLEEP 14:10
PROVIDERS: ATTEND Nurse Practitioner
DX: G47.33 Obstructive sleep apnea (adult) (pediatric) (principal)

== ENCOUNTER → 2017-11-15 | Outpatient (CLI) | payer MEDICARE | LOC: CARD 09:50 | PROVIDERS: ATTEND Internal Medicine Cardiovascular Disease | DX: I08.0 Rheumatic disorders of both mitral and aortic valves (principal); I10 Essential (primary) hypertension; E66.01 Morbid (severe) obesity due to excess calories; I48.0 Paroxysmal atrial fibrillation | CPT/HCPCS: 93306 ==

== ENCOUNTER → 2018-09-05 | Outpatient (CLI) | payer MEDICARE ==
[~2018-09-05] MED LIST changes: -AMIO200T2 PO; +AMIO200T4 PO
== END ==
LOC: CARD 14:22
PROVIDERS: ATTEND Internal Medicine Cardiovascular Disease
DX: I48.0 Paroxysmal atrial fibrillation (principal); I10 Essential (primary) hypertension; E78.2 Mixed hyperlipidemia; R00.2 Palpitations; I08.0 Rheumatic disorders of both mitral and aortic valves
CPT/HCPCS: 93306

== ENCOUNTER → 2019-03-10 | Outpatient (CLI) | payer MEDICARE | LOC: RAD 08:40 | PROVIDERS: ATTEND Internal Medicine Cardiovascular Disease | DX: I10 Essential (primary) hypertension (principal); I34.0 Nonrheumatic mitral (valve) insufficiency; E78.2 Mixed hyperlipidemia; I35.0 Nonrheumatic aortic (valve) stenosis | CPT/HCPCS: 93306 ==